=== PATIENT | male | born 1985 | race American Indian/Alaskan Native ===

== ENCOUNTER 2020-11-13 20:53 | Emergency (ER) | payer SELFPAY | END 2020-11-13 20:58 | disposition left against medical advice (07) | LOC: ED 20:53 | DX: M54.9 Dorsalgia, unspecified (principal); Z53.21 Procedure and treatment not carried out due to patient leaving prior to being seen by health care provider ==

== ENCOUNTER 2020-11-17 19:14 | Emergency (ER) | payer OTHER ==
[2020-11-17 21:06] VITALS: BP 118/79
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
== END 2020-11-17 22:45 | disposition home or self-care (01) ==
LOC: ED 19:14
DX: M54.5 Low back pain (principal); M79.651 Pain in right thigh; M25.541 Pain in joints of right hand; Z79.899 Other long term (current) drug therapy; V49.69XA Unspecified car occupant injured in collision with other motor vehicles in traffic accident, initial encounter; Y92.410 Unspecified street and highway as the place of occurrence of the external cause; Y93.89 Activity, other specified; Y99.8 Other external cause status
CPT/HCPCS: 72100

== ENCOUNTER 2021-01-18 17:37 | Emergency (ER) | payer OTHER ==
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
[2021-01-18 19:43] VITALS: BP 108/72
== END 2021-01-18 19:44 | disposition home or self-care (01) ==
LOC: ED 17:37
DX: S39.012A Strain of muscle, fascia and tendon of lower back, initial encounter (principal); Z76.0 Encounter for issue of repeat prescription; Z79.899 Other long term (current) drug therapy; X58.XXXA Exposure to other specified factors, initial encounter; Y93.89 Activity, other specified; Y92.89 Other specified places as the place of occurrence of the external cause; Y99.8 Other external cause status
CPT/HCPCS: 99282